=== PATIENT | male | born 1990 | race Two or more races ===

== ENCOUNTER 2018-05-13 11:18 | Inpatient (IN) | payer SELFPAY ==
--- NOTE | 2018-05-13 11:49 | ER Document Report ---
ED General - General Chief Complaint: Altered Mental Status Stated Complaint: ALTERED MENTAL STATUS Time Seen by Provider: 05/13/18 11:32 Notes: 27-year-old male brought in by EMS for altered mental status. Report is that he is homeless. Patient has scratches on his bilateral lower extremities. Patient is non-communicative and will not answer questions at this time. Patient lying on his back and sleeping. When confronted patient rolls his eyes upwards and appears to be volitional however cannot determine at this time. TRAVEL OUTSIDE OF THE [place] IN LAST 30 DAYS: No - HPI Onset: Other - Unknown Quality of pain: Other - Unknown Past Medical History - General Cannot obtain history due to: Uncooperative, Altered mental status - Social History Smoking Status: Unknown if Ever Smoked Frequency of alcohol use: Unknown Drug Abuse: Other - Known Lives with: Homeless Family History: Other - Unknown Review of Systems - Review of Systems -: Yes ROS unobtainable due to patient's medical condition - Uncooperative, altered Physical Exam - Vital signs Vitals: Resp 16 05/13/18 11:48 Interpretation: Tachycardic - General General appearance: Appears well, Alert - HEENT Head: Normocephalic, Atraumatic Eyes: Normal Pupils: PERRL, Dilated - Respiratory Respiratory status: No respiratory distress Chest status: Nontender Breath sounds: Normal Chest palpation: Normal - Cardiovascular Rhythm: Tachycardia Heart sounds: Normal auscultation Murmur: No - Abdominal Inspection: Normal Distension: No distension Bowel sounds: Normal Tenderness: Nontender Organomegaly: No organomegaly - Extremities General upper extremity: Normal inspection, Nontender, Normal color, Normal ROM , Normal temperature General lower extremity: Normal inspection, Nontender, Normal color, Normal ROM , Normal temperature, Other - superficial scratches bilateral lower extremities. No: Dexter's sign - Neurological Neuro grossly intact: Yes Cognition: Confused, Inattentive - Skin Skin Temperature: Warm Skin Moisture: Dry Skin Color: Normal Course - Re-evaluation Re-evalutation: 05/13/18 13:04 Patient awakened more arousable at this time. Does have significant elevated BUN and creatinine is 1.5. Patient admits to being homeless. Repeat evaluation does not reveal anything significant. He has no nuchal rigidity with a negative Brudzinski. Cultures and lactic ordered based on the fact blood counts 25,000. he does have some mild rhabdo so fluids ordered as well. Patient denied any medical problems. Denies any drug or alcohol abuse. 05/13/18 13:05 05/13/18 14:31 Laboratory 05/13/18 05/13/18 05/13/18 10:58 10:58 12:45 WBC 25.0 H RBC 6.08 H Hgb 17.5 H Hct 51.1 H MCV 84 MCH 28.8 MCHC 34.2 RDW 12.5 Plt Count 268 Total Counted 100 Seg Neutrophils % Not Reportable Seg Neuts % (Manual) 78 Band Neutrophils % 1 L Lymphocytes % Not Reportable Lymphocytes % (Manual) 7 L Atypical Lymphs % 1 Monocytes % Not Reportable Monocytes % (Manual) 13 Eosinophils % Not Reportable Eosinophils % (Manual) 0 Basophils % Not Reportable Basophils % (Manual) 0 Absolute Neutrophils Not Reportable Abs Neuts (Manual) 19.8 H Absolute Lymphocytes Not Reportable Abs Lymphs (Manual) 2.0 Absolute Monocytes Not Reportable Abs Monocytes (Manual) 3.3 H Absolute Eosinophils Not Reportable Absolute Eos (Manual) 0.0 Absolute Basophils Not Reportable Abs Basophils (Manual) 0.0 Toxic Granulation 1+ Platelet Comment ADEQUATE RBC Morph Comment NORMO-CYTIC/CHROMIC VBG pH VBG pCO2 VBG HCO3 VBG Base Excess Sodium 140.6 Potassium 4.2 Chloride 99 Carbon Dioxide 20 L Anion Gap 22 H BUN 60 H Creatinine 1.49 H Est GFR ( Amer) > 60 Est GFR (Non-Af Amer) 56 L Glucose 100 Lactic Acid Calcium 9.9 Magnesium 2.8 H Total Bilirubin 2.5 H Direct Bilirubin 0.7 H Neonat Total Bilirubin Not Reportable Neonat Direct Bilirubin Not Reportable Neonat Indirect Bili Not Reportable AST 39 ALT 31 Alkaline Phosphatase 81 Creatine Kinase 660 H Total Protein 8.8 H Albumin 5.1 H Urine Color YELLOW Urine Appearance CLEAR Urine pH 6.0 Ur Specific [place] 1.025 Urine Protein NEGATIVE Urine Glucose (UA) NEGATIVE Urine Ketones 20 H Urine Blood NEGATIVE Urine Nitrite NEGATIVE Urine Bilirubin NEGATIVE Urine Urobilinogen NEGATIVE Ur Leukocyte Esterase NEGATIVE Urine WBC (Auto) 1 Urine RBC (Auto) 2 U Hyaline Cast (Auto) 3 Urine Mucus (Auto) RARE Urine Ascorbic Acid 20 H Urine Opiates Screen Urine Methadone Screen Ur Barbiturates Screen Ur Phencyclidine Scrn Ur Amphetamines Screen U Benzodiazepines Scrn Urine Cocaine Screen U Marijuana (THC) Screen Serum Alcohol < 10 05/13/18 05/13/18 05/13/18 12:45 13:20 13:20 WBC RBC Hgb Hct MCV MCH MCHC RDW Plt Count Total Counted Seg Neutrophils % Seg Neuts % (Manual) Band Neutrophils % Lymphocytes % Lymphocytes % (Manual) Atypical Lymphs % Monocytes % Monocytes % (Manual) Eosinophils % Eosinophils % (Manual) Basophils % Basophils % (Manual) Absolute Neutrophils Abs Neuts (Manual) Absolute Lymphocytes Abs Lymphs (Manual) Absolute Monocytes Abs Monocytes (Manual) Absolute Eosinophils Absolute Eos (Manual) Absolute Basophils Abs Basophils (Manual) Toxic Granulation Platelet Comment RBC Morph Comment VBG pH 7.31 VBG pCO2 52.1 VBG HCO3 25.9 VBG Base Excess -1.3 Sodium Potassium Chloride Carbon Dioxide Anion Gap BUN Creatinine Est GFR ( Amer) Est GFR (Non-Af Amer) Glucose Lactic Acid 1.7 Calcium Magnesium Total Bilirubin Direct Bilirubin Neonat Total Bilirubin Neonat Direct Bilirubin Neonat Indirect Bili AST ALT Alkaline Phosphatase Creatine Kinase Total Protein Albumin Urine Color Urine Appearance Urine pH Ur Specific [place] Urine Protein Urine Glucose (UA) Urine Ketones Urine Blood Urine Nitrite Urine Bilirubin Urine Urobilinogen Ur Leukocyte Esterase Urine WBC (Auto) Urine RBC (Auto) U Hyaline Cast (Auto) Urine Mucus (Auto) Urine Ascorbic Acid Urine Opiates Screen NEGATIVE Urine Methadone Screen NEGATIVE Ur Barbiturates Screen NEGATIVE Ur Phencyclidine Scrn NEGATIVE Ur Amphetamines Screen NEGATIVE U Benzodiazepines Scrn NEGATIVE Urine Cocaine Screen NEGATIVE U Marijuana (THC) Screen NEGATIVE Serum Alcohol Head CT 05/13/18 11:49 IMPRESSION: NORMAL BRAIN CT WITHOUT CONTRAST. EVIDENCE OF ACUTE STROKE: NO. Patient with dehydration and leukocytosis. Consulted hospitalist will admit at this time. Will attempt to consent patient for LP as well. 05/13/18 15:56 Went in to speak with patient about doing an LP. Patient is refusing but still not making sense. I told him that he would need to be admitted to the hospital and patient pulled his IV out states that he is going. At this time I do not feel patient has some mental capacity to make this decision. Sargents like patient is still altered. Patient has multiple potential life-threatening issues going on at this time. I am having mental health see because I do not believe patient has some mental status to make these decisions and patient needs more immediate treatment. If mental health states that patient is of sound mind to make this decision then I will allow patient to sign out AMA. Consult for admission but at this time there is no point in moving forward until this acute issue can be addressed by mental health 05/13/18 17:18 Patient was evaluated by [facility]. At this point they feel that patient indeed does have instability and likely does not have the ability to make a rational decision on his own at this time. Patient was placed on legal hold. I explained to the patient the process about getting him the care that he needs. Patient is being argumentative and talking in circles. Patient attempted to leave the ER by running. Patient was subdued by security. At this time patient needs to be admitted. Will proceed with admission at this time. - Vital Signs Vital signs: Temp Pulse Resp BP Pulse Ox 16 99 05/13/18 11:48 05/13/18 12:07 - Laboratory Result Diagrams: 05/13/18 10:58 05/13/18 10:58 Laboratory results interpreted by me: 05/13/18 05/13/18 05/13/18 10:58 10:58 12:45 WBC 25.0 H RBC 6.08 H Hgb 17.5 H Hct 51.1 H Band Neutrophils % 1 L Lymphocytes % (Manual) 7 L Abs Neuts (Manual) 19.8 H Abs Monocytes (Manual) 3.3 H Carbon Dioxide 20 L Anion Gap 22 H BUN 60 H Creatinine 1.49 H Est GFR (Non-Af Amer) 56 L Magnesium 2.8 H Total Bilirubin 2.5 H Direct Bilirubin 0.7 H Creatine Kinase 660 H Total Protein 8.8 H Albumin 5.1 H Urine Ketones 20 H Urine Ascorbic Acid 20 H Critical Care Note - Critical Care Note Total time excluding time spent on procedures (mins): 60 Comments: Consultation with specialists, acute kidney injury, rhabdomyolysis, leukocytosis , mental health instability Discharge - Discharge Clinical Impression: Dehydration, Acute psychosis Leukocytosis, unspecified Qualifiers: Leukocytosis type: bandemia Qualified Code(s): D72.825 - Bandemia Altered mental status Qualifiers: Altered mental status type: unspecified Qualified Code(s): R41.82 - Altered mental status, unspecified Condition: Good Disposition: ADMITTED INPATIENT Admitting Provider: Hospitalist - [facility] Unit Admitted: Telemetry
[2018-05-13 12:21] LABS: HEMATOCRIT 51.1 % (37.9-51.0); HEMOGLOBIN 17.5 g/dL (13.5-17.0); MEAN CORPUSCULAR HEMOGLOBIN 28.8 pg (27.0-33.4); MEAN CORPUSCULAR HGB CONC 34.2 g/dL (32.0-36.0); MEAN CORPUSCULAR VOLUME 84 fl (80-97); PLATELET COUNT 268 10^3/uL (150-450); RED BLOOD COUNT 6.08 10^6/uL (4.35-5.55); RED CELL DISTRIBUTION WIDTH 12.5 % (11.5-14.0)
[2018-05-13 12:29] LABS: ALANINE AMINOTRANSFERASE 31 U/L (21-72); ALBUMIN 5.1 g/dL (3.5-5.0); ALKALINE PHOSPHATASE 81 U/L (38-126); ASPARTATE AMINO TRANSFERASE 39 U/L (17-59); BILIRUBIN,DIRECT 0.7 mg/dL (0.0-0.4); BILIRUBIN,TOTAL 2.5 mg/dL (0.2-1.3); BLOOD UREA NITROGEN 60 mg/dL (7-20); CALCIUM 9.9 mg/dL (8.4-10.2); CARBON DIOXIDE 20 mmol/L (22-30); CHLORIDE 99 mmol/L (98-107); CREATINE KINASE 660 U/L (55-170); GLUCOSE 100 mg/dL (75-110); POTASSIUM 4.2 mmol/L (3.6-5.0); TOTAL PROTEIN 8.8 g/dL (6.3-8.2)
[2018-05-13 12:30] LABS: ALCOHOL < 10 mg/dL (NONE DETECTED)
[2018-05-13] MEDS ORDERED: RINGERS SOLUTION,LACTATED 1,000 ML IV ONE (12:31)
[2018-05-13 12:35] LABS: SODIUM 140.6 mmol/L (137-145)
[2018-05-13 12:41] LABS: ANION GAP 22 (5-19)
--- NOTE | 2018-05-13 12:41 | RADIOLOGY REPORT (SQ) ---
EXAM DESCRIPTION: CT HEAD WITHOUT COMPLETED DATE/TIME: 05/13/2018 12:04 pm REASON FOR STUDY: altered, unresponsive COMPARISON: None. TECHNIQUE: Axial images acquired through the brain without intravenous contrast. Images reviewed wi th bone, brain and subdural windows. Images stored on PACS. All CT scanners at this facility use dose modulation, iterative reconstruction, and/or weight based d osing when appropriate to reduce radiation dose to as low as reasonably achievable (ALARA). [facility]: Dose Right [facility]: CareDose [facility]: Dose Right [facility]: Teradose 4D [facility]: Teleport RADIATION DOSE: CT Rad equipment meets quality standard of care and radiation dose reduction techniq ues were employed. CTDIvol: 53.2 mGy. DLP: 1017 mGy-cm. mGy. LIMITATIONS: None. FINDINGS: VENTRICLES: Normal size and contour. CEREBRUM: No masses. No hemorrhage. No midline shift. No evidence for acute infarction. Normal gra y/white matter differentiation. No areas of low density in the white matter. CEREBELLUM: No masses. No hemorrhage. No alteration of density. No evidence for acute infarction. EXTRAAXIAL SPACES: No fluid collections. No masses. ORBITS AND GLOBE: No intra- or extraconal masses. Normal contour of globe without masses. CALVARIUM: No fracture. PARANASAL SINUSES: No fluid or mucosal thickening. SOFT TISSUES: No mass or hematoma. OTHER: No other significant finding. IMPRESSION: NORMAL BRAIN CT WITHOUT CONTRAST. EVIDENCE OF ACUTE STROKE: NO. COMMENT: Quality ID # [id number]: Final reports with documentation of one or more dose reduction techniques (e.g., Automated exposure control, adjustment of the mA and/or kV according to patient size, use of iterative reconstruction technique) TECHNICAL DOCUMENTATION: JOB ID: [id number] [employer]- All Rights Reserved Reading location - IP/workstation name: [email or web address]
[2018-05-13 12:50] LABS: ABSOLUTE MONOCYTES # (MANUAL) 3.3 10^3/uL (0.1-1.4); ABSOLUTE NEUTROPHILS# (MANUAL) 19.8 10^3/uL (1.7-8.2); BAND NEUTROPHILS % (MANUAL) 1 % (3-5); BASOPHILS % (MANUAL) 0 % (0-2); EOSINOPHILS % (MANUAL) 0 % (0-6); LYMPHOCYTES % (MANUAL) 7 % (13-45); MONOCYTES % (MANUAL) 13 % (3-13); SEGMENTED NEUTROPHILS % (MAN) 78 % (42-78); TOTAL CELLS COUNTED 100
--- NOTE | 2018-05-13 12:50 | EKG REPORT ---
SEVERITY:- NORMAL ECG - SINUS RHYTHM ST ELEV, PROBABLE NORMAL EARLY REPOL PATTERN : Confirmed by: Vishal Castillo MD 13-May-2018 12:50:09
[2018-05-13 12:51] LABS: PLATELET COMMENT ADEQUATE; RBC MORPHOLOGY COMMENT NORMO-CYTIC/CHROMIC; TOXIC GRANULATION 1+
[2018-05-13 13:08] LABS: APPEARANCE,URINE CLEAR; BILIRUBIN,URINE NEGATIVE (NEGATIVE); COLOR,URINE YELLOW; GLUCOSE, URINE NEGATIVE (NEGATIVE); KETONES,URINE 20 mg/dL (NEGATIVE); LEUKOCYTE ESTERASE,URINE NEGATIVE (NEGATIVE); NITRITE,URINE NEGATIVE (NEGATIVE); PROTEIN,URINE NEGATIVE (NEGATIVE); URINE SPECIFIC GRAVITY 1.025; UROBILINOGEN,URINE NEGATIVE mg/dL (<2.0)
[2018-05-13 13:22] LABS: URINE AMPHETAMINES SCREEN NEGATIVE; URINE BARBITURATES SCREEN NEGATIVE; URINE BENZODIAZEPINES SCREEN NEGATIVE; URINE COCAINE SCREEN NEGATIVE; URINE MARIJUANA (THC) SCREEN NEGATIVE; URINE METHADONE SCREEN NEGATIVE; URINE PHENCYCLIDINE SCREEN NEGATIVE
[2018-05-13 13:39] LABS: VENOUS BLOOD BASE EXCESS -1.3 mmol/L; VENOUS BLOOD HCO3 25.9 mmol/L (20-32); VENOUS BLOOD PCO2 52.1 mmHg (35-63); VENOUS BLOOD PH 7.31 (7.30-7.42)
[2018-05-13] MEDS ORDERED: HALOPERIDOL LACTATE INJ 5 MG/1 ML VIAL IM ONE ×2 (17:27→17:29)
[2018-05-13] MEDS ORDERED: HALOPERIDOL LACTATE INJ 5 MG/1 ML VIAL ONE (17:36)
[2018-05-13] MEDS ORDERED: ACETAMINOPHEN 325 MG TABLET PO PRN (17:52)
[2018-05-13] MEDS ORDERED: HALOPERIDOL LACTATE INJ 5 MG/1 ML VIAL IV PRN (18:01)
[2018-05-13] MEDS: DEXTROSE 5%-LACTATED RINGERS 1,000 ML IV PRN (18:10)
--- NOTE | 2018-05-13 18:22 | PDOC H&P ---
History of Present Illness Admission Date/PCP: 05/13/18 14:32 Patient complains of: AMS History of Present Illness: JAHAIRA EDWARDS is a 27 year old male brought in by EMS for altered mental status. Patient was admitted to ED where he recovered his consciousness. Patient denies any past medical history except for GERD. Patient is very agitated and uncooperative does not provide any past medical history or any symptoms except that he was thirsty and he wanted water. He is very adamant about leaving the hospital, patient tried to elope the hospital however he was brought back by the security. Patient seems to be severely dehydrated, severely acidotic, ALMAS and leukocytosis. Seems to lack understanding of his underlying medical problems and he is very anxious to leave the hospital. It was deemed that patient was not safe for discharge due to his underlying medical condition, patient was placed on KAYLA by ED and psych was consulted. On my initial conversation with psychiatry they agree with medical management of his underlying medical condition and psych evaluation. Past Medical History GI Medical History: Reports: Gastroesophageal Reflux Disease Social History Lives with: Homeless Smoking Status: Unknown if Ever Smoked Family History Family History: Other - Unknown Parental Family History Reviewed: No - Patient does not provide any history Children Family History Reviewed: NA Sibling(s) Family History Reviewed.: NA Medication/Allergy Home Medications: Unobtainable [Unobtainable] 05/13/18 Allergies/Adverse Reactions: No Known Allergies Allergy (Unverified 05/14/18 11:21) Review of Systems ROS unobtainable: Due to endotracheal tube, Due to mental status - Patient is very uncooperative and does not provide a good review of system, Other Eyes: ABSENT: visual disturbances Ears: ABSENT: hearing changes Cardiovascular: ABSENT: chest pain, dyspnea on exertion, edema, orthropnea, palpitations Respiratory: ABSENT: cough, hemoptysis Gastrointestinal: ABSENT: abdominal pain, constipation, diarrhea, hematemesis, hematochezia, nausea, vomiting Genitourinary: ABSENT: dysuria, hematuria Musculoskeletal: ABSENT: joint swelling Integumentary: ABSENT: rash, wounds Neurological: ABSENT: abnormal gait, abnormal speech, confusion, dizziness, focal weakness, syncope Psychiatric: ABSENT: anxiety, depression, homidical ideation, suicidal ideation Endocrine: ABSENT: cold intolerance, heat intolerance, polydipsia, polyuria Hematologic/Lymphatic: ABSENT: easy bleeding, easy bruising Physical Exam Vital Signs: Temp Pulse Resp BP Pulse Ox 16 99 05/13/18 11:48 05/13/18 12:07 General appearance: PRESENT: no acute distress, disheveled, well-developed Head exam: PRESENT: atraumatic, normocephalic Eye exam: PRESENT: conjunctiva pink, EOMI, PERRLA. ABSENT: scleral icterus Ear exam: PRESENT: normal external ear exam Mouth exam: PRESENT: moist, tongue midline Neck exam: ABSENT: carotid bruit, JVD, lymphadenopathy, thyromegaly Respiratory exam: PRESENT: clear to auscultation dash. ABSENT: rales, rhonchi, wheezes Cardiovascular exam: PRESENT: RRR. ABSENT: diastolic murmur, rubs, systolic murmur Pulses: PRESENT: normal dorsalis pedis pul Vascular exam: PRESENT: normal capillary refill GI/Abdominal exam: PRESENT: normal bowel sounds, soft. ABSENT: distended, guarding, mass, organolmegaly, rebound, tenderness Rectal exam: PRESENT: deferred Extremities exam: PRESENT: full ROM. ABSENT: calf tenderness, clubbing, pedal edema Neurological exam: PRESENT: alert, awake, oriented to person, oriented to place , oriented to time, oriented to situation, CN II-XII grossly intact. ABSENT: motor sensory deficit Psychiatric exam: PRESENT: agitated, anxious, normal mood. ABSENT: homicidal ideation, suicidal ideation Focused psych exam: PRESENT: paranoid, restlessness Skin exam: PRESENT: dry, intact, warm. ABSENT: cyanosis, rash Results Impressions: Head CT 05/13/18 11:49 IMPRESSION: NORMAL BRAIN CT WITHOUT CONTRAST. EVIDENCE OF ACUTE STROKE: NO. Assessment & Plan - Diagnosis (1) Agitation Is this a current diagnosis for this admission?: Yes Plan: Patient denies any underlying psychiatric problems. Psychiatry consulted. We will continue KAYLA, as needed Haldol. Pending psych evaluation and recommendation. (2) Ketosis Is this a current diagnosis for this admission?: Yes Plan: Likely due to starvation ketosis patient states he has not been eating for several days. Patient denies any history of diabetes. Start on LR D5W. Pending beta hydroxybutyric acid (3) Leukocytosis, unspecified Qualifiers: Leukocytosis type: bandemia Qualified Code(s): D72.825 - Bandemia Is this a current diagnosis for this admission?: Yes Plan: Vitals stable,blood cultures pending. UA negative. CBC tomorrow. Unlikely underlying infectious process (4) Altered mental status Qualifiers: Altered mental status type: unspecified Qualified Code(s): R41.82 - Altered mental status, unspecified Is this a current diagnosis for this admission?: Yes Plan: Patient denies any recreational drug abuse. Urine drug screening and EtOH negative. Altered mental status may have been due to severe dehydration or starvation ketosis. Patient refused to have an LP done (5) Dehydration Is this a current diagnosis for this admission?: Yes Plan: Patient has severe leukocytosis and hemoconcentration likely to severe dehydration. Volume resuscitation (6) ALMAS (acute kidney injury) Is this a current diagnosis for this admission?: Yes Plan: Most likely prerenal volume resuscitation. Monitor electrolytes
--- NOTE | 2018-05-13 19:10 | PSYCHOLOGICAL NOTE ---
Psych Note - Psych Note Psych Note: Reason for Consult: AMS, concern for patient's ability to make informed decisions Contact permissions: None at this time, patient would not provide collateral Patient is a 27 year old male who presented to the ED via EMS for AMS. Once in the ED he was unresponsive to name being called, gentle touch of a limb and sternal rub. There were medical concerns and patient was to be admitted to hospitalist services but he refused. When asked why he was in the ED he said "I Didn't feel good, I feel better now, I want to [facility]. " He stated he "came for a girl he likes." He became perseverative about getting in touch with this girl (he eventually gave the name Micaela higuera) . He stated he "just wants to rest, calm down, get an apartment and get a job but people discriminate." He reported he was born in [place] and came to [facility] with his mother in 1997. He stated his mother is Flakita Schaffer who lives in this area. He denied a MH history. Observed both his legs having scabbed cuts all over and when asked what happened patient said "I fell down." He asked about calling a friend but when told this clinician would need to dial the number and ask for friend he refused. He was eventually given a phone and never called friend. He ended up eloping requiring security and [employer] to bring him back. UDS was negative for all substances that were tested for. Patient was alert and oriented to person and place. Mood was labile with congruent affect as evidenced by being euthymic, anxious, irritable. He denied SI/HI. He did not appear to be responding to internal stimuli however his eyes did dart around at everyone who passed by his room. Thought processes were tangential. Conversational speech was within normal limits for rate, tone and prosody. Intellectual abilities are estimated to be average. Insight, judgment and impulse control were poor as evidenced by being informed he had medical issues of concern that need further workup and refusing treatment, in addition to his tangential thinking. Diagnosis: Altered Mental Status Impression/Plan: Recommendation to IVC patient. He presented with bizarre behavior (saying he came to ED to see a girl he likes, said let him talk to her , finally identified name of Micaela), his eyes were bloodshot, he was uncooperative, a poor historian, was guarded, had tangential thinking, there is no previous medical history on file and he would not provide collateral. Consulted with Dr. Torres regarding the management and care of patient. ED Physician in agreement with recommendations.
[2018-05-14] MEDS: DEXTROSE 5%-LACTATED RINGERS 1,000 ML IV PRN (01:08)
[2018-05-14 04:25] LABS: ABSOLUTE BASOPHILS # (AUTO) 0.1 10^3/uL (0.0-0.2); ABSOLUTE EOSINOPHILS # (AUTO) 0.1 10^3/uL (0.0-0.6); ABSOLUTE LYMPHOCYTES (AUTO) 2.3 10^3/uL (0.5-4.7); ABSOLUTE MONOCYTES (AUTO) 1.6 10^3/uL (0.1-1.4); ABSOLUTE NEUT (AUTO) 7.2 10^3/uL (1.7-8.2); BASOPHILS % (AUTO) 0.9 % (0-2); EOSINOPHILS % (AUTO) 1.3 % (0-6); HEMATOCRIT 41.5 % (37.9-51.0); LYMPHOCYTES % (AUTO) 20.5 % (13-45); MEAN CORPUSCULAR HEMOGLOBIN 28.8 pg (27.0-33.4); MEAN CORPUSCULAR HGB CONC 33.9 g/dL (32.0-36.0); MEAN CORPUSCULAR VOLUME 85 fl (80-97); PLATELET COUNT 179 10^3/uL (150-450); RED BLOOD COUNT 4.88 10^6/uL (4.35-5.55); RED CELL DISTRIBUTION WIDTH 12.9 % (11.5-14.0); SEGMENTED NEUTROPHILS % (AUTO) 63.3 % (42-78); TOTAL CELLS COUNTED % (AUTO) 100 %; WHITE BLOOD COUNT 11.3 10^3/uL (4.0-10.5)
[2018-05-14 04:27] LABS: HEMOGLOBIN 14.1 g/dL (13.5-17.0)
[2018-05-14 04:46] LABS: ALANINE AMINOTRANSFERASE 26 U/L (21-72); ALBUMIN 3.6 g/dL (3.5-5.0); ALKALINE PHOSPHATASE 48 U/L (38-126); ANION GAP 9 (5-19); ASPARTATE AMINO TRANSFERASE 28 U/L (17-59); BILIRUBIN,DIRECT 0.3 mg/dL (0.0-0.4); BLOOD UREA NITROGEN 26 mg/dL (7-20); CALCIUM 8.3 mg/dL (8.4-10.2); CARBON DIOXIDE 26 mmol/L (22-30); CHLORIDE 103 mmol/L (98-107); GLUCOSE 93 mg/dL (75-110); SODIUM 138.1 mmol/L (137-145); TOTAL PROTEIN 6.3 g/dL (6.3-8.2)
[2018-05-14 16:43] VITALS: BP 131/88
--- NOTE | 2018-05-14 17:39 | PSYCHOLOGICAL NOTE ---
Psych Note - Psych Note Psych Note: Reason for Consult: AMS, concern for patient's ability to make informed decisions Contact permissions: None at this time, patient would not provide collateral Patient states that he was relaxing yesterday and was try to find a place to stay when he became dehydrated. He states that today he is feeling good and denies suicidal and homicidal ideation. Patient denies having any mental health history. He reports that he has plans [place] [facility] [place] [facility] [place] [facility]; however , if they are full he will try to go to the other [place] [facility] across the street. He was able to correctly identify orientation and higher cognitive functioning (ie abstract, rational, and problem-solving) questions. Patient declines any further assistance with resources for local community. Patient is alert and orientated to person, place, time and circumstance. Mood is euthymic with congruent affect. Patient denies suicidal and homicidal ideation. Delusions are absent behaviors congruent with an intact reality based presentation i.e. organized and linear thought process. Eye contact is well-maintained. Conversational speech was within normal rate, tone and prosody. Intellectual abilities appear to be within the average range. Attention and concentration are good. Insight, judgment, impulse control are currently good. Diagnosis: Altered Mental Status Impression/Plan: Recommendation to rescind of IVC and is cleared from acute psychiatric services. Patient is completely orientated and alert, presents with organized and linear thought processes. Patient was able to demonstrate higher cognitive functioning and forward thinking through questioning (ie abstract, rational, and problem-solving). He denies suicidal and homicidal ideation and reports having no mental health history. patient no longer meets IVC criteria per [place] GS 122C. Conduct organized and linear consulted with Dr. Torres regarding the management and care of patient. ED Physician in agreement with recommendations.
== END 2018-05-14 18:05 | disposition home or self-care (01) | DRG 684 ==
LOC: ER 11:18 → EH 14:32 → ICU 21:00
PROVIDERS: ADMIT Internal Medicine; ATTEND Internal Medicine
DX: N17.9 Acute kidney failure, unspecified (principal); E86.0 Dehydration; R45.1 Restlessness and agitation; T73.0XXA Starvation, initial encounter; E88.89 Other specified metabolic disorders; K21.9 Gastro-esophageal reflux disease without esophagitis
CPT/HCPCS: 36415; 70450; 80053; 80307; 81001; 82010; 82550; 82803; 83605; 83735; 85025; 86701; 86803; 86804; 87040; 87077; 87340; 93005; 93010; 96360; 99291; J1630; J7120

== ENCOUNTER 2018-05-15 10:22 | Emergency (ER) | payer SELFPAY ==
--- NOTE | 2018-05-15 11:42 | ER Document Report ---
ED Medical Screen (RME) - General Chief Complaint: General Weakness Stated Complaint: WEAKNESS Time Seen by Provider: 05/15/18 11:31 Notes: Patient says he is here because he cannot see. Patient was found walking between here in [place] to [facility] and brought in by EMS. Patient was just in our hospital from Saturday until yesterday and he was discharged. He was here and ICU for acute renal failure, starvation, and several other similar diagnoses. Patient says he is from someplace in [place] and wants to get back there, but does not think he can walk that far. Complains of feeling hungry and weak. TRAVEL OUTSIDE OF THE [place] IN LAST 30 DAYS: No - Related Data Allergies/Adverse Reactions: No Known Allergies Allergy (Verified 05/15/18 10:24) Past Medical History - Social History Frequency of alcohol use: quite 3 -4 months ago. use to go to Drug Abuse: Marijuana Renal/ Medical History: Denies: Hx Peritoneal Dialysis GI Medical History: Reports: Hx Gastroesophageal Reflux Disease Physical Exam - Vital signs Vitals: Temp Pulse Resp BP Pulse Ox 97.7 F 62 16 131/85 H 100 05/15/18 10:27 05/15/18 10:27 05/15/18 10:27 05/15/18 10:27 05/15/18 10:27 Course - Vital Signs Vital signs: Temp Pulse Resp BP Pulse Ox 97.7 F 62 14 131/85 H 100 05/15/18 10:27 05/15/18 10:27 05/15/18 11:13 05/15/18 10:27 05/15/18 10:27
[2018-05-15 12:01] LABS: ABSOLUTE BASOPHILS # (AUTO) 0.1 10^3/uL (0.0-0.2); ABSOLUTE EOSINOPHILS # (AUTO) 0.2 10^3/uL (0.0-0.6); ABSOLUTE LYMPHOCYTES (AUTO) 2.5 10^3/uL (0.5-4.7); ABSOLUTE MONOCYTES (AUTO) 1.5 10^3/uL (0.1-1.4); ABSOLUTE NEUT (AUTO) 6.4 10^3/uL (1.7-8.2); BASOPHILS % (AUTO) 0.6 % (0-2); EOSINOPHILS % (AUTO) 1.5 % (0-6); HEMATOCRIT 40.8 % (37.9-51.0); HEMOGLOBIN 14.1 g/dL (13.5-17.0); LYMPHOCYTES % (AUTO) 23.6 % (13-45); MEAN CORPUSCULAR HEMOGLOBIN 29.4 pg (27.0-33.4); MEAN CORPUSCULAR HGB CONC 34.4 g/dL (32.0-36.0); MEAN CORPUSCULAR VOLUME 85 fl (80-97); MONOCYTES % (AUTO) 14.1 % (3-13); PLATELET COUNT 186 10^3/uL (150-450); RED BLOOD COUNT 4.79 10^6/uL (4.35-5.55); RED CELL DISTRIBUTION WIDTH 12.6 % (11.5-14.0); SEGMENTED NEUTROPHILS % (AUTO) 60.2 % (42-78); TOTAL CELLS COUNTED % (AUTO) 100 %; WHITE BLOOD COUNT 10.6 10^3/uL (4.0-10.5)
[2018-05-15 12:23] LABS: ALANINE AMINOTRANSFERASE 36 U/L (21-72); ALBUMIN 4.1 g/dL (3.5-5.0); ALKALINE PHOSPHATASE 60 U/L (38-126); ANION GAP 7 (5-19); ASPARTATE AMINO TRANSFERASE 65 U/L (17-59); BILIRUBIN,DIRECT 0.3 mg/dL (0.0-0.4); BILIRUBIN,TOTAL 1.7 mg/dL (0.2-1.3); BLOOD UREA NITROGEN 20 mg/dL (7-20); CARBON DIOXIDE 29 mmol/L (22-30); CHLORIDE 101 mmol/L (98-107); GLUCOSE 84 mg/dL (75-110); LIPASE 38.3 U/L (23-300); POTASSIUM 4.3 mmol/L (3.6-5.0); SODIUM 137.2 mmol/L (137-145); TOTAL PROTEIN 6.8 g/dL (6.3-8.2)
[2018-05-15 12:31] LABS: APPEARANCE,URINE CLEAR; BILIRUBIN,URINE NEGATIVE (NEGATIVE); COLOR,URINE YELLOW; GLUCOSE, URINE NEGATIVE (NEGATIVE); KETONES,URINE 20 mg/dL (NEGATIVE); LEUKOCYTE ESTERASE,URINE NEGATIVE (NEGATIVE); NITRITE,URINE NEGATIVE (NEGATIVE); PROTEIN,URINE NEGATIVE (NEGATIVE); URINE SPECIFIC GRAVITY 1.015
--- NOTE | 2018-05-15 14:09 | ER Document Report ---
ED Dizziness/Weakness - General Chief Complaint: General Weakness Stated Complaint: WEAKNESS Time Seen by Provider: 05/15/18 11:31 Notes: 27-year-old male to the emergency department asking for something to eat. Patient was hospitalized 2 days ago for psychosis and rhabdomyolysis with acute kidney injury. Symptoms resolved and was discharged. Patient states that he has been living on the streets for the last day and has not had anything to eat or drink. Denies any significant pain or symptoms. When asked if he wants help he says that he can take care of himself. TRAVEL OUTSIDE OF THE [place] IN LAST 30 DAYS: No - HPI Onset/Duration: Gradual - Related Data Allergies/Adverse Reactions: No Known Allergies Allergy (Verified 05/15/18 10:24) Past Medical History - General Information source: Patient - Social History Smoking Status: Former Smoker Frequency of alcohol use: quite 3 -4 months ago. use to go to Drug Abuse: Marijuana Lives with: Homeless Family History: Other - Unknown Patient has suicidal ideation: No Patient has homicidal ideation: No Renal/ Medical History: Denies: Hx Peritoneal Dialysis GI Medical History: Reports: Hx Gastroesophageal Reflux Disease Review of Systems - Review of Systems Constitutional: No symptoms reported EENT: No symptoms reported Cardiovascular: No symptoms reported Respiratory: No symptoms reported Gastrointestinal: No symptoms reported Genitourinary: No symptoms reported Male Genitourinary: No symptoms reported Musculoskeletal: No symptoms reported Skin: No symptoms reported Hematologic/Lymphatic: No symptoms reported Neurological/Psychological: No symptoms reported Physical Exam - Vital signs Vitals: Temp Pulse Resp BP Pulse Ox 97.7 F 62 16 131/85 H 100 05/15/18 10:27 05/15/18 10:27 05/15/18 10:27 05/15/18 10:27 05/15/18 10:27 Interpretation: Normal - General General appearance: Appears well, Alert - HEENT Head: Normocephalic, Atraumatic Eyes: Normal Pupils: PERRL - Respiratory Respiratory status: No respiratory distress Chest status: Nontender Breath sounds: Normal Chest palpation: Normal - Cardiovascular Rhythm: Regular Heart sounds: Normal auscultation Murmur: No - Abdominal Inspection: Normal Distension: No distension Bowel sounds: Normal Tenderness: Nontender Organomegaly: No organomegaly - Back Back: Normal, Nontender - Extremities General upper extremity: Normal inspection, Nontender, Normal color, Normal ROM , Normal temperature General lower extremity: Normal inspection, Nontender, Normal color, Normal ROM , Normal temperature, Normal weight bearing. No: Dexter's sign - Neurological Neuro grossly intact: Yes Cognition: Normal Orientation: AAOx4 Lian Coma Scale Eye Opening: Spontaneous Lian Coma Scale Verbal: Oriented [place] Coma Scale Motor: Obeys Commands [place] Coma Scale Total: 15 Speech: Normal Motor strength normal: LUE, RUE, LLE, RLE Sensory: Normal - Psychological Associated symptoms: Normal affect, Normal mood - Skin Skin Temperature: Warm Skin Moisture: Dry Skin Color: Normal Course - Re-evaluation Re-evalutation: 05/15/18 14:51 At this time patient's labs are fairly unremarkable as compared to previous. I have am having social security assessor visit with the patient. It is unfortunate that this gentleman is homeless however at this time I find no further medical issues to keep him. Does have some mild elevated CK. Likely this is coming down instead of going back up. 05/15/18 14:54 Laboratory 05/15/18 05/15/18 05/15/18 11:45 11:45 11:45 WBC 10.6 H RBC 4.79 Hgb 14.1 Hct 40.8 MCV 85 MCH 29.4 MCHC 34.4 RDW 12.6 Plt Count 186 Seg Neutrophils % 60.2 Lymphocytes % 23.6 Monocytes % 14.1 H Eosinophils % 1.5 Basophils % 0.6 Absolute Neutrophils 6.4 Absolute Lymphocytes 2.5 Absolute Monocytes 1.5 H Absolute Eosinophils 0.2 Absolute Basophils 0.1 Sodium 137.2 Potassium 4.3 Chloride 101 Carbon Dioxide 29 Anion Gap 7 BUN 20 Creatinine 0.75 Est GFR ( Amer) > 60 Est GFR (Non-Af Amer) > 60 Glucose 84 Calcium 9.0 Total Bilirubin 1.7 H Direct Bilirubin 0.3 Neonat Total Bilirubin Not Reportable Neonat Direct Bilirubin Not Reportable Neonat Indirect Bili Not Reportable AST 65 H ALT 36 Alkaline Phosphatase 60 Creatine Kinase Total Protein 6.8 Albumin 4.1 Lipase 38.3 Urine Color YELLOW Urine Appearance CLEAR Urine pH 6.0 Ur Specific [place] 1.015 Urine Protein NEGATIVE Urine Glucose (UA) NEGATIVE Urine Ketones 20 H Urine Blood NEGATIVE Urine Nitrite NEGATIVE Urine Bilirubin NEGATIVE Urine Urobilinogen 4.0 H Ur Leukocyte Esterase NEGATIVE Urine WBC (Auto) 1 Urine RBC (Auto) 0 Urine Mucus (Auto) OCC Urine Ascorbic Acid NEGATIVE 05/15/18 11:45 WBC RBC Hgb Hct MCV MCH MCHC RDW Plt Count Seg Neutrophils % Lymphocytes % Monocytes % Eosinophils % Basophils % Absolute Neutrophils Absolute Lymphocytes Absolute Monocytes Absolute Eosinophils Absolute Basophils Sodium Potassium Chloride Carbon Dioxide Anion Gap BUN Creatinine Est GFR ( Amer) Est GFR (Non-Af Amer) Glucose Calcium Total Bilirubin Direct Bilirubin Neonat Total Bilirubin Neonat Direct Bilirubin Neonat Indirect Bili AST ALT Alkaline Phosphatase Creatine Kinase 1252 H Total Protein Albumin Lipase Urine Color Urine Appearance Urine pH Ur Specific [place] Urine Protein Urine Glucose (UA) Urine Ketones Urine Blood Urine Nitrite Urine Bilirubin Urine Urobilinogen Ur Leukocyte Esterase Urine WBC (Auto) Urine RBC (Auto) Urine Mucus (Auto) Urine Ascorbic Acid 05/15/18 15:36 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 Patient has had 2 L of fluid. Vital signs are normal. Not tachycardic. No acute distress. Will discharge - Vital Signs Vital signs: Temp Pulse Resp BP Pulse Ox 97.6 F 68 14 131/74 H 99 05/15/18 14:38 05/15/18 14:38 05/15/18 11:13 05/15/18 14:38 05/15/18 14:38 - Laboratory Result Diagrams: 05/15/18 11:45 05/15/18 11:45 Laboratory results interpreted by me: 05/15/18 05/15/18 05/15/18 11:45 11:45 11:45 WBC 10.6 H Monocytes % 14.1 H Absolute Monocytes 1.5 H Total Bilirubin 1.7 H AST 65 H Creatine Kinase Urine Ketones 20 H Urine Urobilinogen 4.0 H 05/15/18 11:45 WBC Monocytes % Absolute Monocytes Total Bilirubin AST Creatine Kinase 1252 H Urine Ketones Urine Urobilinogen Discharge - Discharge Clinical Impression: Dehydration, History of rhabdomyolysis Condition: Good Disposition: HOME, SELF-CARE Instructions: Dehydration ([facility]) Referrals: [facility] [Provider Group] - Follow up in 3-5 days
[2018-05-15] MEDS: RINGERS SOLUTION,LACTATED 1,000 ML IV PRN ×2 (15:10→15:11)
[2018-05-15 17:14] VITALS: BP 112/67
== END 2018-05-15 17:31 | disposition home or self-care (01) ==
LOC: ER 10:22
DX: E86.0 Dehydration (principal); F12.10 Cannabis abuse, uncomplicated; Z87.39 Personal history of other diseases of the musculoskeletal system and connective tissue; Z59.0 Homelessness; Z87.891 Personal history of nicotine dependence
CPT/HCPCS: 99285; 96360; 36415; 82550; 83690; 85025; 80053; 81001; J7120

== ENCOUNTER 2018-05-15 23:32 | Emergency (ER) | payer SELFPAY ==
[2018-05-15 23:44] VITALS: BP 120/75
== END 2018-05-16 00:53 | disposition left against medical advice (07) ==
LOC: ER 23:32
DX: Z53.21 Procedure and treatment not carried out due to patient leaving prior to being seen by health care provider (principal)